=== PATIENT | male | born 1935 | race Caucasian/White ===

== ENCOUNTER 2018-11-23 15:21 | Inpatient (IN) | payer MEDICARE ==
[~2018-11-23] VITALS: Ht 182.9 cm; Wt 109.1 kg
[2018-11-23] MEDS ORDERED: ELIQUIS2.5 MG PO (16:12)
[2018-11-23] MEDS ORDERED: GABAPENTIN100 MG PO (16:13)
[2018-11-23] MEDS ORDERED: LIPITOR20 MG PO (16:16)
[2018-11-23] MEDS ORDERED: BAYER CHEWABLE81 MG (17:10)
[2018-11-23] MEDS ORDERED: GABAPENTIN100 MG (17:10)
[2018-11-23] MEDS ORDERED: FLOMAX0.4 MG PO (17:11)
[2018-11-23] MEDS ORDERED: LOPRESSOR25 MG PO (17:11)
[2018-11-23 19:02] LABS: BASOPHILS 0.1 % (0-2); EOSINOPHILS 0 % (0-7); HEMOGLOBIN 15.1 g/dL (13.5-17.5); IMMATURE GRANULOCYTES 0.3 % (0-5); LYMPHOCYTES 8.1 % (15-50); MCH 31.3 pg (26.0-34.0); MCHC 34.3 g/dL (31.0-37.0); MCV 91.3 fL (80.0-100.0); MEAN PLATELET VOLUME 10.9 fL (7.4-10.4); MONOCYTES 7.6 % (2-11); NEUTROPHILS 83.9 % (40-80); PLATELET COUNT 149 10x3/uL (130-400); RBC 4.82 10x6/uL (4.20-6.10); RDW 14.2 % (11.5-14.5); WBC 16.5 10x3/uL (4.8-10.8)
[2018-11-23 19:15] LABS: APPEARANCE HAZY (CLEAR); BILIRUBIN NEGATIVE (NEGATIVE); COLOR YELLOW (YELLOW); GLUCOSE NEGATIVE (NEGATIVE); KETONE NEGATIVE (NEGATIVE); NITRITE POSITIVE (NEGATIVE); PROTEIN NEGATIVE (NEGATIVE); SPECIFIC GRAVITY 1.005 (1.005-1.020); UROBILINOGEN NORMAL (NORMAL)
[2018-11-23 19:17] LABS: BACTERIA MANY /hpf (NONE SEEN); RED CELLS - URINE OCC /hpf (0-5); WHITE CELLS - URINE 0-5 /hpf (0-5)
[2018-11-23 19:23] VITALS: BP 129/45
[2018-11-23 19:24] LABS: ALBUMIN 3.6 g/dL (3.4-5.0); ALKALINE PHOSPHATASE 55 U/L (46-116); ALT (SGPT) 73 U/L (10-68); BILIRUBIN - TOTAL 1.65 mg/dL (0.2-1.3); CALC OSMOLALITY 277 mosm/kg (275-300); CALCIUM 9.3 mg/dL (8.5-10.1); CARBON DIOXIDE 27.1 mmol/L (21.0-32.0); CHLORIDE - SERUM 101 mmol/L (98-107); GLUCOSE 153 mg/dL (74-106); PROTEIN - SERUM 7.7 g/dL (6.4-8.2); SODIUM 137 mmol/L (136-145); UREA NITROGEN 15 mg/dL (7-18); eGFR NON AFRICAN AMERICAN 76 mL/min (90-120)
--- NOTE | 2018-11-23 22:01 | NUR ---
PT ARRIVED TO THE FLOOR. ALERT AND ORIENTED. NO SIGNS OF DISTRESS. BREATHING EVEN AND UNLABORED. WILL CONTINUE PLAN OF CARE. CALL LIGHT IN REACH. BED LOWERED AND LOCKED. BED RAILS UP X3. FALL PROCAUTIONS IN PLACE.
[2018-11-24 01:33] VITALS: BP 110/53
[2018-11-24 04:25] VITALS: BMI 32.6
[2018-11-24 04:48] VITALS: BP 110/50
[2018-11-24 05:16] LABS: BASOPHILS 0.1 % (0-2); EOSINOPHILS 0.1 % (0-7); HEMATOCRIT 40.7 % (42.0-54.0); HEMOGLOBIN 13.6 g/dL (13.5-17.5); IMMATURE GRANULOCYTES 0.3 % (0-5); LYMPHOCYTES 10.1 % (15-50); MCH 30.8 pg (26.0-34.0); MCHC 33.4 g/dL (31.0-37.0); MCV 92.1 fL (80.0-100.0); MEAN PLATELET VOLUME 10.5 fL (7.4-10.4); MONOCYTES 8.2 % (2-11); NEUTROPHILS 81.2 % (40-80); PLATELET COUNT 129 10x3/uL (130-400); RBC 4.42 10x6/uL (4.20-6.10); RDW 14.7 % (11.5-14.5); WBC 14.5 10x3/uL (4.8-10.8)
[2018-11-24 05:43] LABS: ANION GAP 12.7 mmol/L (8-16); CALCIUM 8.7 mg/dL (8.5-10.1); CARBON DIOXIDE 27.2 mmol/L (21.0-32.0); CREATININE - SERUM 1.1 mg/dL (0.6-1.3); POTASSIUM - SERUM 3.9 mmol/L (3.5-5.1)
[2018-11-24 08:45] VITALS: BP 108/43
--- NOTE | 2018-11-24 10:12 | NUR ---
PATIENT RESTING COMFORTABLY. NO COMPLAINTS. SCD'S PLACED ON PATIENT, MACHINE TURNED ON AND FUNCTIONING. FAMILY AT BEDSIDE. ALL NEEDS MET AT THIS TIME.
[2018-11-24 12:40] VITALS: BP 118/56
[2018-11-24 16:45] VITALS: BP 115/49
--- NOTE | 2018-11-24 17:02 | NUR ---
PATIENT RESTING IN BED WATCHING TV. C/O SINUS PRESSURE, DRAINAGE AND WATERY EYES. EYES HAVE MILD REDNESS. NASAL DISCHARGE PRESENT.
--- NOTE | 2018-11-24 18:40 | NUR ---
I have reviewed this patient and I concur with the Shift Assessment completed by the Licensed Practical Nurse today this shift.
--- NOTE | 2018-11-24 19:45 | NUR ---
PT RESTING IN BED. ALERT AND ORIENTED. NO SINGS OF DISTRESS. BREATHING EVEN AND UNLABORED. IV SITE LT AC DRESSING CLEAN DRY AND INTACT. NO SIGNS OF INFECTION. SKIN CLEAN DRY AND INTACT. BOWEL SOUNDS ACTIVE. REDDNESS INNER THIGHS AND SCTROTUM. NO LOWER LEG SWELLING PRESENT. SCDS ON. BED LOWERED AND LOCKED. BED RAILS UP X3. KARSON ALARM ON. YELLOW GOWN AND SOCKS ON. WILL CONTINUE PLAN OF CARE. CALL LIGHT IN REACH.
[2018-11-24 21:47] VITALS: BP 109/48
[2018-11-25 01:16] VITALS: BP 124/54
--- NOTE | 2018-11-25 03:33 | NUR ---
I have reviewed this patient and I concur with the Shift Assessment completed by the Licensed Practical Nurse today this shift.
[2018-11-25 04:37] VITALS: BP 133/52
[2018-11-25 04:49] LABS: BASOPHILS 0.1 % (0-2); EOSINOPHILS 0.4 % (0-7); HEMATOCRIT 37.3 % (42.0-54.0); HEMOGLOBIN 12.5 g/dL (13.5-17.5); IMMATURE GRANULOCYTES 0.3 % (0-5); LYMPHOCYTES 9.1 % (15-50); MCH 30.4 pg (26.0-34.0); MCHC 33.5 g/dL (31.0-37.0); MCV 90.8 fL (80.0-100.0); MEAN PLATELET VOLUME 10.4 fL (7.4-10.4); MONOCYTES 6.7 % (2-11); NEUTROPHILS 83.4 % (40-80); PLATELET COUNT 118 10x3/uL (130-400); RBC 4.11 10x6/uL (4.20-6.10); RDW 14.5 % (11.5-14.5)
[2018-11-25 05:00] LABS: WBC 7.7 10x3/uL (4.8-10.8)
[2018-11-25 05:06] LABS: CALC OSMOLALITY 276 mosm/kg (275-300); CARBON DIOXIDE 24.3 mmol/L (21.0-32.0); CHLORIDE - SERUM 103 mmol/L (98-107); GLUCOSE 146 mg/dL (74-106); POTASSIUM - SERUM 3.9 mmol/L (3.5-5.1); SODIUM 136 mmol/L (136-145); UREA NITROGEN 19 mg/dL (7-18)
[2018-11-25 05:11] LABS: CREATININE - SERUM 0.8 mg/dL (0.6-1.3); eGFR NON AFRICAN AMERICAN > 90 mL/min (90-120)
--- NOTE | 2018-11-25 07:22 | NUR ---
PATIENT WAS STARTED ON A TRADITIONAL GENT DOSING. A LEVELS WAS DRAWN AT 11/24 @2200 IT WAS 2.7. IT WAS ABOUT AN HOUR LATE TO BE A PEAK. 8 HOURS AFTER THE DOSE THE LEVEL WAS 0.5 WILL CONTINUE WITH 80 MG Q 8H, AND RECHECK LEVELS IN A FEW DAYS
--- NOTE | 2018-11-25 08:00 | NUR ---
PATIENT LAYING IN BED. REPORTS FEELING A LITTLE BETTER THAN YESTERDAY. C/O DRY MOUTH THOUGH DRINKING WATER. ROBERT ROSS, SPEAKING TO PATIENT I LEFT.
--- NOTE | 2018-11-25 10:30 | NUR ---
ASSISTED PATIENT TO BEDSIDE COMMODE FOR BM. EGG CRATE PACED ON MATRESS AND NEW LINENS. ASSISTED PATIENT BACK TO BED. KARSON ALARM TURNED ON, CALL LIGHT IN REACH. ALL NEEDS MET AT THIS TIME.
[2018-11-25 10:39] VITALS: BP 137/66
--- NOTE | 2018-11-25 12:22 | MORECARE ---
CASE MANAGEMENT DISCHARGE SUMMARY PATIENT: ABDI RICHARDSON UNIT: [id number] ADM DATE: 11/23/18 AGE: 83 : 37 SEX: M ROOM/BED: D.2211 AUTHOR: CORTES URBANO PHYSICIAN: REFERRING PHYSICIAN: ELIZA RED MD DATE OF SERVICE: 11/25/18 Discharge Plan Patient Name: ABDI RICHARDSON Facility: [facility]:[place] : 1935 Planned Disposition: Inpatient Rehab Anticipated Discharge Date: Discharge Date: Expected LOS: Initial Reviewer: [email or web address] Initial Review Date: 11/23/2018 Generated: 11/25/18 1:21 pm Patient Name: ABDI RICHARDSON Page 53752 at 1222 All edits/amendments must be made on the electronic document DICTATION DATE: 11/25/18 1221 SOCCER COACH: TK 11/25/18 1221 RPT#: [id number] DC DATE: STATUS: ADM IN [facility] [address] [place] [address] END OF REPORT
--- NOTE | 2018-11-25 12:31 | MORECARE ---
CASE MANAGEMENT DISCHARGE SUMMARY PATIENT: ABDI RICHARDSON UNIT: [id number] ADM DATE: 11/23/18 AGE: 83 : 37 SEX: M ROOM/BED: D.2211 AUTHOR: YOLIEDOC PHYSICIAN: REFERRING PHYSICIAN: ELIZA RED MD DATE OF SERVICE: 11/25/18 Discharge Plan Patient Name: ABDI RICHARDSON Facility: [facility]:[place] : 1935 Planned Disposition: Inpatient Rehab Anticipated Discharge Date: Discharge Date: Expected LOS: Initial Reviewer: [email or web address] Initial Review Date: 11/23/2018 Generated: 11/25/18 1:30 pm Comments DCP- Discharge Planning Updated by [email or web address]: Patricia Davis on 11/25/18 11:[address] Patient Name: ABDI RICHARDSON Admission Status: ER Accout number: [id number] Admission Date: 11-23-2018 : 1935 Admission Diagnosis: Attending: ELIZA RED Current LOS: 2 Anticipated DC Date: Planned Disposition: Inpatient Rehab Primary Insurance: [employer] CHOICE PPO MCR ADVANT Discharge Planning Comments: CM met with patient to complete initial dc planning assessment. CM educated patient on the CM role and verbal consent given by patient to complete assessment. Patient lives at home where he is independent with his care. He stated that either is son or daughter in law will drive him home. At discharge patient would like to go to inpatient rehab at [facility] on [facility] to get stronger & feels this is a safe discharge. He is not opposed to home health when he is discharged. CM will contact [facility] ([place]) Patient denied known discharge needs at this time. At home the patient has a walker, wheelchair, cane, BSC, and shower chair. CM will continue to follow and will assist as needed with dc plans/needs. Skin Lifter Bacon: Patricia Davis DCPIA - Discharge Planning Initial Assessment Updated by [email or web address]: Patricia Davis on 11/25/18 12:22 pm * Is the patient Alert and Oriented? Yes * How many steps to enter\exit or inside your home? basement * PCP JYOTI/ Piotr * Pharmacy [facility] * Preadmission Environment Home with Family * ADLs Independent * Equipment Bedside Commode Cane Shower Chair Walker Wheelchair * List name and contact numbers for known caregivers / representatives who currently or will assist patient after discharge: Lenin Richardson (son) [phone] * Verbal permission to speak to the caregivers and representatives has been obtained from the patient. N/A * Community resources currently utilized None * Additional services required to return to the preadmission environment? Yes * Can the patient safely return to the preadmission environment? Yes * Has this patient been hospitalized within the prior 30 days at any hospital? No External Providers External Provider: [facility] Next Contact Date: Service Request Date: Service Type: Resolution: Reviewer: Comments: Last DP export: 11/25/18 11:21 a Patient Name: ABDI RICHARDSON Page 22015 at 1231 All edits/amendments must be made on the electronic document DICTATION DATE: 11/25/18 123 PEDAL ASSEMBLER: TK 11/25/18 1230 RPT#: [id number] DC DATE: STATUS: ADM IN [facility] [address] [place] [address] END OF REPORT
[2018-11-25 13:03] VITALS: BP 117/56
[2018-11-25 17:59] VITALS: BP 134/60
[2018-11-25 20:20] VITALS: BP 137/59
[2018-11-26 00:31] VITALS: BP 117/63
[2018-11-26 04:17] VITALS: BP 124/64
[2018-11-26 04:59] LABS: BASOPHILS 0.4 % (0-2); EOSINOPHILS 0.7 % (0-7); HEMATOCRIT 37.1 % (42.0-54.0); HEMOGLOBIN 12.5 g/dL (13.5-17.5); IMMATURE GRANULOCYTES 0.2 % (0-5); LYMPHOCYTES 19.6 % (15-50); MCH 30.5 pg (26.0-34.0); MCHC 33.7 g/dL (31.0-37.0); MCV 90.5 fL (80.0-100.0); MEAN PLATELET VOLUME 10.3 fL (7.4-10.4); MONOCYTES 8.8 % (2-11); NEUTROPHILS 70.3 % (40-80); PLATELET COUNT 135 10x3/uL (130-400); RDW 14.4 % (11.5-14.5)
[2018-11-26 05:03] LABS: WBC 5.6 10x3/uL (4.8-10.8)
[2018-11-26 05:37] LABS: CALC OSMOLALITY 272 mosm/kg (275-300); CALCIUM 8.2 mg/dL (8.5-10.1); CARBON DIOXIDE 25.7 mmol/L (21.0-32.0); CHLORIDE - SERUM 102 mmol/L (98-107); CREATININE - SERUM 0.7 mg/dL (0.6-1.3); GLUCOSE 163 mg/dL (74-106); POTASSIUM - SERUM 3.6 mmol/L (3.5-5.1); SODIUM 135 mmol/L (136-145); eGFR NON AFRICAN AMERICAN > 90 mL/min (90-120)
[2018-11-26 05:39] LABS: UREA NITROGEN 10 mg/dL (7-18)
--- NOTE | 2018-11-26 08:15 | NUR ---
PATIENT IN BED WITH IV INTACT. NO COMPLAINTS OR SIGNS OF DISTRESS. CALL LIGHT WITHIN REACH.
[2018-11-26 09:38] VITALS: BP 133/60
--- NOTE | 2018-11-26 13:36 | MORECARE ---
CASE MANAGEMENT DISCHARGE SUMMARY PATIENT: ABDI RICHARDSON UNIT: [id number] ADM DATE: 11/23/18 AGE: 83 : 37 SEX: M ROOM/BED: D.2211 AUTHOR: YOLIEDOC PHYSICIAN: REFERRING PHYSICIAN: ELIZA RED MD DATE OF SERVICE: 11/26/18 Discharge Plan Patient Name: ABDI RICHARDSON Facility: [facility]:[place] : 1935 Planned Disposition: Inpatient Rehab Anticipated Discharge Date: Discharge Date: Expected LOS: Initial Reviewer: [email or web address] Initial Review Date: 11/23/2018 Generated: 11/26/18 2:35 pm Comments DCP- Discharge Planning Updated by [email or web address]: Patricia Davis on 11/25/18 11:[address] Patient Name: ABDI RICHARDSON Admission Status: ER Accout number: [id number] Admission Date: 11-23-2018 : 1935 Admission Diagnosis: Attending: ELIZA RED Current LOS: 2 Anticipated DC Date: Planned Disposition: Inpatient Rehab Primary Insurance: [employer] CHOICE PPO MCR ADVANT Discharge Planning Comments: CM met with patient to complete initial dc planning assessment. CM educated patient on the CM role and verbal consent given by patient to complete assessment. Patient lives at home where he is independent with his care. He stated that either is son or daughter in law will drive him home. At discharge patient would like to go to inpatient rehab at [facility] on [facility] to get stronger & feels this is a safe discharge. He is not opposed to home health when he is discharged. CM will contact [facility] ([place]) Patient denied known discharge needs at this time. At home the patient has a walker, wheelchair, cane, BSC, and shower chair. CM will continue to follow and will assist as needed with dc plans/needs. Fulfillment Associate: Patricia Davis DCPIA - Discharge Planning Initial Assessment Updated by [email or web address]: Patricia Davis on 11/25/18 12:22 pm * Is the patient Alert and Oriented? Yes * How many steps to enter\exit or inside your home? basement * PCP JYOTI/ Piotr * Pharmacy [facility] * Preadmission Environment Home with Family * ADLs Independent * Equipment Bedside Commode Cane Shower Chair Walker Wheelchair * List name and contact numbers for known caregivers / representatives who currently or will assist patient after discharge: Lenin Richardson (son) [phone] * Verbal permission to speak to the caregivers and representatives has been obtained from the patient. N/A * Community resources currently utilized None * Additional services required to return to the preadmission environment? Yes * Can the patient safely return to the preadmission environment? Yes * Has this patient been hospitalized within the prior 30 days at any hospital? No Last DP export: 11/25/18 11:30 a Patient Name: ABDI RICHARDSON Page [id number] at 1336 All edits/amendments must be made on the electronic document DICTATION DATE: 11/26/185 SPRAYER INSECTICIDE: TK 11/26/185 RPT#: [id number] DC DATE: STATUS: ADM IN [facility] [address] [place] [address] END OF REPORT
[2018-11-26 13:55] VITALS: BP 114/53
--- NOTE | 2018-11-26 13:58 | MORECARE ---
CASE MANAGEMENT DISCHARGE SUMMARY PATIENT: ABDI RICHARDSON UNIT: [id number] ADM DATE: 11/23/18 AGE: 83 : 37 SEX: M ROOM/BED: D.2211 AUTHOR: YOLIEDOC PHYSICIAN: REFERRING PHYSICIAN: ELIZA RED MD DATE OF SERVICE: 11/26/18 Discharge Plan Patient Name: ABDI RICHARDSON Facility: [facility]:[place] : 1935 Planned Disposition: Inpatient Rehab Anticipated Discharge Date: Discharge Date: Expected LOS: Initial Reviewer: [email or web address] Initial Review Date: 11/23/2018 Generated: 11/26/18 2:58 pm Comments DCP- Discharge Planning Updated by [email or web address]: Patricia Davis on 11/25/18 11:[address] Patient Name: ABDI RICHARDSON Admission Status: ER Accout number: [id number] Admission Date: 11-23-2018 : 1935 Admission Diagnosis: Attending: ELIZA RED Current LOS: 2 Anticipated DC Date: Planned Disposition: Inpatient Rehab Primary Insurance: [employer] CHOICE PPO MCR ADVANT Discharge Planning Comments: CM met with patient to complete initial dc planning assessment. CM educated patient on the CM role and verbal consent given by patient to complete assessment. Patient lives at home where he is independent with his care. He stated that either is son or daughter in law will drive him home. At discharge patient would like to go to inpatient rehab at [facility] on [address] to get stronger & feels this is a safe discharge. He is not opposed to home health when he is discharged. CM will contact [facility] ([place]) Patient denied known discharge needs at this time. At home the patient has a walker, wheelchair, cane, BSC, and shower chair. CM will continue to follow and will assist as needed with dc plans/needs. Record Keeper: Patricia Davis DCPIA - Discharge Planning Initial Assessment Updated by [email or web address]: Patricia Davis on 11/25/18 12:22 pm * Is the patient Alert and Oriented? Yes * How many steps to enter\exit or inside your home? basement * PCP JYOTI/ Piotr * Pharmacy [facility] * Preadmission Environment Home with Family * ADLs Independent * Equipment Bedside Commode Cane Shower Chair Walker Wheelchair * List name and contact numbers for known caregivers / representatives who currently or will assist patient after discharge: Lenin Richardson (son) [phone] * Verbal permission to speak to the caregivers and representatives has been obtained from the patient. N/A * Community resources currently utilized None * Additional services required to return to the preadmission environment? Yes * Can the patient safely return to the preadmission environment? Yes * Has this patient been hospitalized within the prior 30 days at any hospital? No External Providers External Provider: [facility] Next Contact Date: Service Request Date: Service Type: Resolution: Reviewer: Comments: Last DP export: 11/26/18 12:36 p Patient Name: ABDI RICHARDSON Page [phone] at 1358 All edits/amendments must be made on the electronic document DICTATION DATE: 11/26/18 135 CONSTRUCTION COST ESTIMATOR: TK 11/26/18 1358 RPT#: [id number] DC DATE: STATUS: ADM IN [facility] [address] [place] [address] END OF REPORT
--- NOTE | 2018-11-26 14:09 | MORECARE ---
CASE MANAGEMENT DISCHARGE SUMMARY PATIENT: ABDI RICHARDSON UNIT: [id number] ADM DATE: 11/23/18 AGE: 83 : 37 SEX: M ROOM/BED: D.2211 AUTHOR: YOLIEDOC PHYSICIAN: REFERRING PHYSICIAN: ELIZA RED MD DATE OF SERVICE: 11/26/18 Discharge Plan Patient Name: ABDI RICHARDSON Facility: [facility]:[place] : 1935 Planned Disposition: Inpatient Rehab Anticipated Discharge Date: Discharge Date: Expected LOS: Initial Reviewer: [email or web address] Initial Review Date: 11/23/2018 Generated: 11/26/18 3:08 pm Comments DCP- Discharge Planning Updated by [email or web address]: Patricia Davis on 11/26/18 12:[address] PATIENT WOULD LIKE TO GO TO [facility], I CALLED AND SPOKE WITH [facility] AND SENT CLINICALS OVER THERE DCP- Discharge Planning Updated by [email or web address]: Patricia Davis on 11/25/18 11:[address] Patient Name: ABDI RICHARDSON Admission Status: ER Accout number: [id number] Admission Date: 11-23-2018 : 1935 Admission Diagnosis: Attending: ELIZA RED Current LOS: 2 Anticipated DC Date: Planned Disposition: Inpatient Rehab Primary Insurance: HU[employer] CHOICE PPO MCR ADVANT Discharge Planning Comments: CM met with patient to complete initial dc planning assessment. CM educated patient on the CM role and verbal consent given by patient to complete assessment. Patient lives at home where he is independent with his care. He stated that either is son or daughter in law will drive him home. At discharge patient would like to go to inpatient rehab at [facility] on [facility] to get stronger & feels this is a safe discharge. He is not opposed to home health when he is discharged. CM will contact [facility] ([place]) Patient denied known discharge needs at this time. At home the patient has a walker, wheelchair, cane, BSC, and shower chair. CM will continue to follow and will assist as needed with dc plans/needs. Oracle Identity Management Consultant: Patricia Davis DCPIA - Discharge Planning Initial Assessment Updated by [email or web address]: Patricia Davis on 11/25/18 12:22 pm * Is the patient Alert and Oriented? Yes * How many steps to enter\exit or inside your home? basement * PCP JYOTI/ Piotr * Pharmacy [facility] * Preadmission Environment Home with Family * ADLs Independent * Equipment Bedside Commode Cane Shower Chair Walker Wheelchair * List name and contact numbers for known caregivers / representatives who currently or will assist patient after discharge: Lenin Richardson (son) [phone] * Verbal permission to speak to the caregivers and representatives has been obtained from the patient. N/A * Community resources currently utilized None * Additional services required to return to the preadmission environment? Yes * Can the patient safely return to the preadmission environment? Yes * Has this patient been hospitalized within the prior 30 days at any hospital? No Last DP export: 11/26/18 12:58 p Patient Name: ABDI RICHARDSON Page 41293 at 1409 All edits/amendments must be made on the electronic document DICTATION DATE: 11/26/181407 ACCOUNTING METHODS ANALYST: DM 11/26/181407 RPT#: [id number] DC DATE: STATUS: ADM IN [facility] [address] [place] [address] END OF REPORT
--- NOTE | 2018-11-26 14:38 | NUR ---
OT NOTE: PT COMPLETED BED MOB WITH MIN A. PT COMPLETED TRANSFERS WITH MOD A. PT COMPLETED GROOMING TASKS WITH MIN A. THANK YOU, SKY CUEVA
--- NOTE | 2018-11-26 17:54 | NUR ---
PATIENT SITTING UP EATING AT THIS TIME. NO COMPLAINTS OR SIGNS OF DISTRESS. FAMILY AT BEDSIDE. CALL LIGHT WITHIN REACH.
[2018-11-26 18:07] VITALS: BP 118/58
[2018-11-26 18:34] VITALS: Ht 182.9 cm; Wt 109.1 kg
--- NOTE | 2018-11-26 19:05 | NUR ---
PT ALERT AND ORIENTED WHEN ENTERING THE ROOM. PT REQUESTING AC TO BE TURNED DOWN. PT IN YELLOW GOWN. SCD'S ON. LUNGS AUSCULTATED AND CLEAR TO AUSCULTATION IN UPPER AND LOWER LOBES. LEFT AC IV THAT IS SALINE LOCKED. PT DENIES ANY CARE AT THIS TIME. CPOC.
[2018-11-26 20:53] VITALS: BP 139/56
--- NOTE | 2018-11-26 21:27 | NUR ---
ADMINSITERED HS MEDICATIONS. PT STARTED COUGHING WHILE IN ROOM AND AUSCAULTATED LUNG SOUNDS AGAIN AND PRESENTED WITH INSPIRATORY WHEEZES. RETREIVED AN INCENTIVE SPIROMETERE AND EDUCATED PT ON USE. PT PROVIDED RETURN DEMONSTRATION. DENIES ANY OTHER NEEDS AT THIS TIME. CPOC.
[2018-11-27 01:19] VITALS: BP 126/62
--- NOTE | 2018-11-27 04:42 | NUR ---
I have reviewed this patient and I concur with the Shift Assessment completed by the Licensed Practical Nurse today this shift.
[2018-11-27 05:27] VITALS: BP 124/61
[2018-11-27 06:39] LABS: BASOPHILS 0.2 % (0-2); EOSINOPHILS 2.4 % (0-7); HEMATOCRIT 36.8 % (42.0-54.0); HEMOGLOBIN 12.3 g/dL (13.5-17.5); IMMATURE GRANULOCYTES 0.3 % (0-5); LYMPHOCYTES 22.3 % (15-50); MCH 30.4 pg (26.0-34.0); MCHC 33.4 g/dL (31.0-37.0); MCV 90.9 fL (80.0-100.0); MEAN PLATELET VOLUME 10.3 fL (7.4-10.4); MONOCYTES 13.9 % (2-11); NEUTROPHILS 60.9 % (40-80); PLATELET COUNT 140 10x3/uL (130-400); RBC 4.05 10x6/uL (4.20-6.10); RDW 14.5 % (11.5-14.5); WBC 6.2 10x3/uL (4.8-10.8)
[2018-11-27 07:16] LABS: CALC OSMOLALITY 274 mosm/kg (275-300); CALCIUM 8.3 mg/dL (8.5-10.1); CARBON DIOXIDE 28.4 mmol/L (21.0-32.0); CHLORIDE - SERUM 101 mmol/L (98-107); CREATININE - SERUM 0.7 mg/dL (0.6-1.3); GLUCOSE 123 mg/dL (74-106); POTASSIUM - SERUM 3.7 mmol/L (3.5-5.1); SODIUM 137 mmol/L (136-145); eGFR NON AFRICAN AMERICAN > 90 mL/min (90-120)
[2018-11-27 07:17] LABS: UREA NITROGEN 13 mg/dL (7-18)
[2018-11-27 09:19] VITALS: BP 122/63
[2018-11-27 14:25] VITALS: BP 126/63
[2018-11-27 18:05] VITALS: BP 122/55
--- NOTE | 2018-11-27 18:45 | NUR ---
PATIENT SITTING UP IN BED WITH NO COMPLAINTS OR SIGNS OF DISTRESS. STATED BREATHING BETTER NOW THAT LASIX HAS WORKED. URINE CLEARER AND PATIENT LESS WHEEZY. IV INTACT. NO PROBLEMS AT THIS TIME. CALL LIGHT WITHIN REACH.
--- NOTE | 2018-11-27 19:24 | NUR ---
PATIENT IN BED WITH IV INTACT. NO COMPLAINTS OR SIGNS OF DISTRESS. CALL LIGHT WITHIN REACH.
[2018-11-27 20:00] VITALS: BP 124/59
[2018-11-28] VITALS: BP 123/61
[2018-11-28 04:00] VITALS: BP 128/47
--- NOTE | 2018-11-28 04:22 | NUR ---
I have reviewed this patient and I concur with the Shift Assessment completed by the Licensed Practical Nurse today this shift.
--- NOTE | 2018-11-28 07:44 | NUR ---
PATIENT IN BED WITH EYES OPEN. DENIES ANY NEEDS AT THIS TIME. IV INTACT. CALL LIGHT WITHIN REACH. NO COMPLAINTS OR SIGNS OF DISTRESS.
[2018-11-28 07:48] LABS: BASOPHILS 0.3 % (0-2); EOSINOPHILS 2.7 % (0-7); HEMATOCRIT 38.4 % (42.0-54.0); HEMOGLOBIN 13.1 g/dL (13.5-17.5); IMMATURE GRANULOCYTES 0.3 % (0-5); LYMPHOCYTES 19.9 % (15-50); MCH 30.7 pg (26.0-34.0); MCHC 34.1 g/dL (31.0-37.0); MCV 89.9 fL (80.0-100.0); MEAN PLATELET VOLUME 9.8 fL (7.4-10.4); MONOCYTES 11.5 % (2-11); NEUTROPHILS 65.3 % (40-80); PLATELET COUNT 160 10x3/uL (130-400); RBC 4.27 10x6/uL (4.20-6.10); RDW 14.2 % (11.5-14.5)
[2018-11-28 07:55] LABS: CALC OSMOLALITY 274 mosm/kg (275-300); CALCIUM 8.4 mg/dL (8.5-10.1); CARBON DIOXIDE 28.4 mmol/L (21.0-32.0); CHLORIDE - SERUM 101 mmol/L (98-107); CREATININE - SERUM 0.7 mg/dL (0.6-1.3); GLUCOSE 128 mg/dL (74-106); POTASSIUM - SERUM 3.5 mmol/L (3.5-5.1); SODIUM 136 mmol/L (136-145); UREA NITROGEN 14 mg/dL (7-18); eGFR NON AFRICAN AMERICAN > 90 mL/min (90-120)
[2018-11-28 10:10] VITALS: BP 116/59
--- NOTE | 2018-11-28 13:28 | NUR ---
OT NOTE: PT REPORTED FEELING BETTER TODAY, ABLE TO PERFORM BED MOB AND SITTING ON EDGE OF BED WITH MIN ASSIST. ABLE TO PERFORM SIMPLE GROOMING FROM BEDSIDE. REPORTED THAT HE WAS NOT EATING MUCH BECAUSE HE DIDNT WANT TO HAVE TO USE BS COMMODE. EXPLAINED TO PT THAT WE CAN KEEP WALKER IN HIS ROOM AND AMBULATE TO BATHROOM VS BS COMMODE. TOLD PT THAT WE COULD ATTEMPT SHOWER TODAY BUT HE STATED THAT HE ALREADY HAD A BATH THIS AM. WILL ATTEMPT TOMORROW TOLERATED. SHERLYN VALENCIA, OTR/L
--- NOTE | 2018-11-28 14:00 | NUR ---
POWER PLANT SUPERVISOR IN TO REDRESS IV. STATED THAT IV DOESNT WORK ANY MORE AT THIS TIME. IV RESTARTED IN LEFT ARM X 2 STICKS. PATIENT TOLERATED WITH SMALL AMOUNT OF PAIN. LEFT AC IV REMOVED WITH CATH TIP INTACT. PATIENT HAS NO COMPLAINTS. IV INTACT. CALL LIGHT WITHIN REACH.
[2018-11-28 14:23] VITALS: BP 118/62
[2018-11-28 16:00] VITALS: BP 122/59
--- NOTE | 2018-11-28 18:55 | NUR ---
PATIENT IN BED WITH NO COMPLAINTS OR SIGNS OF DISTRESS. IV INTACT. CALL LIGHT WITHIN REACH.
[2018-11-28 20:00] VITALS: BP 124/61
[2018-11-29] VITALS: BP 130/56
[2018-11-29 03:00] VITALS: BP 124/55
[2018-11-29 04:54] LABS: BASOPHILS 0.3 % (0-2); EOSINOPHILS 3.5 % (0-7); HEMATOCRIT 39.1 % (42.0-54.0); HEMOGLOBIN 13.4 g/dL (13.5-17.5); IMMATURE GRANULOCYTES 0.6 % (0-5); LYMPHOCYTES 22.2 % (15-50); MCH 30.9 pg (26.0-34.0); MCHC 34.3 g/dL (31.0-37.0); MCV 90.3 fL (80.0-100.0); MEAN PLATELET VOLUME 9.9 fL (7.4-10.4); NEUTROPHILS 64.4 % (40-80); RBC 4.33 10x6/uL (4.20-6.10); RDW 14.3 % (11.5-14.5); WBC 6.5 10x3/uL (4.8-10.8)
[2018-11-29 04:59] LABS: CALC OSMOLALITY 281 mosm/kg (275-300); CALCIUM 8.2 mg/dL (8.5-10.1); CHLORIDE - SERUM 103 mmol/L (98-107); CREATININE - SERUM 0.6 mg/dL (0.6-1.3); GLUCOSE 131 mg/dL (74-106); POTASSIUM - SERUM 3.7 mmol/L (3.5-5.1); SODIUM 140 mmol/L (136-145); UREA NITROGEN 15 mg/dL (7-18); eGFR NON AFRICAN AMERICAN > 90 mL/min (90-120)
[2018-11-29 05:01] LABS: PLATELET COUNT 195 10x3/uL (130-400)
--- NOTE | 2018-11-29 05:04 | NUR ---
PT IN BED IN LOW FOWLERS POSITION. ALERT AND ORIENTED X4. RESPIRATIONS EVEN AND UNLABORED. VITAL SIGNS STABLE AND AFEBRILE. NO VISUAL CUES OF DISTRESS NOTED. DENIES ANY OTHER NEEDS AT THIS TIME. BED LOW, SIDE RAILS UP X2. CALL LIGHT IN REACH. WILL CONTINUE TO MONITOR.
--- NOTE | 2018-11-29 08:45 | NUR ---
PATIENT IN BED WITH IV INTACT. NO COMPLAINTS WITH CALL LIGHT WITHIN REACH.
[2018-11-29 09:23] VITALS: BP 124/61
--- NOTE | 2018-11-29 12:14 | NUR ---
OT NOTE: PT PERFORMED VERY WELL TODAY. BED MOB WITH SBA; ABLE TO AMB WITHIN ROOM WITH CGA AND USE OF RW; ABLE TO AMB TO BATHROOM WITH CGA AND USE OF RW. PT AMB IN HALLWAY TO IMPROVE FUNCTIONAL ENDURANCE..NO SOB NOTED. PT PERFORMED BATHING OF UE/LE WITH SET UP; REQUIRED ASSIST WITH PERINEAL AREA AND BACK. SET UP WITH GOWN. SET UP WITH SOCKS WHILE SITTING UP IN CHAIR. SIMPLE GROOMING TASKS WITH SET UP SHERLYN VALENCIA OTR/L
[2018-11-29] MEDS ORDERED: Nicoderm [PBKC] TRANSDERM (12:40)
[2018-11-29] MEDS ORDERED: MIRALAX17 GM PO (12:40)
[2018-11-29] MEDS ORDERED: LEVAQUIN750 MG PO (12:40)
[2018-11-29] MEDS ORDERED: FLORAJEN3 CAPS460 MG PO (12:40)
[2018-11-29 13:49] VITALS: BP 115/60
--- NOTE | 2018-11-29 13:52 | MORECARE ---
CASE MANAGEMENT DISCHARGE SUMMARY PATIENT: ABDI RICHARDSON UNIT: [id number] ADM DATE: 11/23/18 AGE: 83 : 37 SEX: M ROOM/BED: D.2211 AUTHOR: YOLIE,DOC PHYSICIAN: REFERRING PHYSICIAN: ELIZA RED MD DATE OF SERVICE: 11/29/18 Discharge Plan Patient Name: ABDI RICHARDSON Facility: [facility]:[place] : 1935 Planned Disposition: Home Anticipated Discharge Date: Discharge Date: Expected LOS: Initial Reviewer: [email or web address] Initial Review Date: 11/23/2018 Generated: 11/29/18 2:51 pm Comments DCP- Discharge Planning Updated by [email or web address]: Tricia Olivo on 11/29/18 12:[address] Patient Name: ABDI RICHARDSON Admission Status: ER Accout number: [id number] Admission Date: 11-23-2018 : 1935 Admission Diagnosis:OTHER DIFFICULTIES WITH MICTURITION Attending: ELIZA RED Current LOS: 6 Anticipated DC Date: Planned Disposition: Home Primary Insurance: HU[employer]NA CHOICE PPO MCR ADVANT Discharge Planning Comments: SPOKE WITH PATIENT AND HIS DIL. HE WANTS TO DC TO HOME TODAY. HAS EQUIPMENT AT HOME, WALKER ETC. STATES HIS INSURANCE IS SETTING HIM UP WITH A NURSE, I'M ASSUMING HH. PATIENT DOESN'T FEEL LIKE HE NEEDS SNF. CM WILL FOLLOW AND ASSIST NEEDED WITH DC PLANNING/NEEDS. Lime Mixer Tender: Tricia Olivo DCP- Discharge Planning Updated by [email or web address]: Patricia Davis on 11/26/18 12:[address] PATIENT WOULD LIKE TO GO TO [facility], I CALLED AND SPOKE WITH [facility] AND SENT CLINICALS OVER THERE DCP- Discharge Planning Updated by [email or web address]: Patricia Davis on 11/25/18 11:[address] Patient Name: ABDI RICHARDSON Admission Status: ER Accout number: [id number] Admission Date: 11-23-2018 : 1935 Admission Diagnosis: Attending: ELZIA RED Current LOS: 2 Anticipated DC Date: Planned Disposition: Inpatient Rehab Primary Insurance: HU[employer]NA CHOICE PPO MCR ADVANT Discharge Planning Comments: CM met with patient to complete initial dc planning assessment. CM educated patient on the CM role and verbal consent given by patient to complete assessment. Patient lives at home where he is independent with his care. He stated that either is son or daughter in law will drive him home. At discharge patient would like to go to inpatient rehab at [facility] on [address] to get stronger & feels this is a safe discharge. He is not opposed to home health when he is discharged. CM will contact [facility] ([place]) Patient denied known discharge needs at this time. At home the patient has a walker, wheelchair, cane, BSC, and shower chair. CM will continue to follow and will assist as needed with dc plans/needs. Lime Mixer Tender: Patricia Davis DCPIA - Discharge Planning Initial Assessment Updated by [email or web address]: Patricia Davis on 11/25/18 12:22 pm * Is the patient Alert and Oriented? Yes * How many steps to enter\exit or inside your home? basement * PCP JYOTI/ Piotr * Pharmacy [facility] * Preadmission Environment Home with Family * ADLs Independent * Equipment Bedside Commode Cane Shower Chair Walker Wheelchair * List name and contact numbers for known caregivers / representatives who currently or will assist patient after discharge: Lenin Richardson (son) [phone] * Verbal permission to speak to the caregivers and representatives has been obtained from the patient. N/A * Community resources currently utilized None * Additional services required to return to the preadmission environment? Yes * Can the patient safely return to the preadmission environment? Yes * Has this patient been hospitalized within the prior 30 days at any hospital? No Coverage Notice Reviewer: [id number] Gina Olivo Notice Issued Date-Time: 11/29/2018 12:39 Notice Type: IM Discharge Notice Notice Delivered To: Patient Relationship to Patient: Fishing Vessel Mate Name: Delivery Method: HAND - Hand Delivered Dominique Days: Prior Verbal Notification: Recipient Understood Notice: Yes Recipient Signature: Yes Med Rec Note Co-signed by Attending: Coverage Notice Comment: Last DP export: 11/26/18 1:08 p Patient Name: ABDI RICHARDSON Page 38945 at 1352 All edits/amendments must be made on the electronic document DICTATION DATE: 11/29/18 1351 RESPIRATORY MEDICINE PHYSICIAN: TK 11/29/18 1351 RPT#: [id number] DC DATE: STATUS: ADM IN [facility] [address] [place] [address] END OF REPORT
--- NOTE | 2018-11-29 15:00 | NUR ---
PATIENT RECIEVED DISCHARGE INSTRUCTIONS. ALSO SPOKE WITH DAUGHTER IN LAW ABOUT PRESCRIPTIONS AND INSTRUCTIONS. VERBALIZED UNDERSTANDING. NO QUESTIONS AT THIS TIME. IV REMOVED WITH CATH TIP INTACT. CALL LIGHT WITHIN REACH.
--- NOTE | 2018-11-29 15:20 | NUR ---
PATIENT ESCORTED OUT OF BUILDING VIA WC TO PRIVATE VEHICLE WITH PERSONAL BELONGINGS BY FAMILY AND HOSPITAL VOLUNTEER.
--- NOTE | 2018-11-30 12:18 | MORECARE ---
CASE MANAGEMENT DISCHARGE SUMMARY PATIENT: ABDI RICHARDSON UNIT: [id number] ADM DATE: 11/23/18 AGE: 83 : 39 SEX: M ROOM/BED: D.2211 AUTHOR: [email or web address] PHYSICIAN: REFERRING PHYSICIAN: ELIZA ERD MD DATE OF SERVICE: 11/30/18 Discharge Plan Patient Name: ABDI RICHARDSON Facility: [facility]:[place] : 1935 Planned Disposition: Home Anticipated Discharge Date: Discharge Date: 11/29/2018 Expected LOS: 0 Initial Reviewer: [id number] Initial Review Date: 11/23/2018 Generated: 11/30/18 1:17 pm Comments DCP- Discharge Planning Updated by [email or web address]: Tricia Olivo on 11/29/18 12:[address] Patient Name: ABDI RICHARDSON Admission Status: ER Accout number: [id number] Admission Date: 11-23-2018 : 1935 Admission Diagnosis:OTHER DIFFICULTIES WITH MICTURITION Attending: ELIZA RED Current LOS: 6 Anticipated DC Date: Planned Disposition: Home Primary Insurance: [employer] CHO[employer] PPO MCR ADVANT Discharge Planning Comments: SPOKE WITH PATIENT AND HIS DIL. HE WANTS TO DC TO HOME TODAY. HAS EQUIPMENT AT HOME, WALKER ETC. STATES HIS INSURANCE IS SETTING HIM UP WITH A NURSE, I'M ASSUMING HH. PATIENT DOESN'T FEEL LIKE HE NEEDS SNF. CM WILL FOLLOW AND ASSIST NEEDED WITH DC PLANNING/NEEDS. Acid Tank Cleaner: Tricia Olivo DCP- Discharge Planning Updated by [email or web address]: Patricia Davis on 11/26/18 12:[address] PATIENT WOULD LIKE TO GO TO [facility], I CALLED AND SPOKE WITH [facility] AND SENT CLINICALS OVER THERE DCP- Discharge Planning Updated by [email or web address]: Patricia Davis on 11/25/18 11:[address] Patient Name: ABDI RICHARDSON Admission Status: ER Accout number: [id number] Admission Date: 11-23-2018 : 1935 Admission Diagnosis: Attending: ELIZA RED Current LOS: 2 Anticipated DC Date: Planned Disposition: Inpatient Rehab Primary Insurance: [employer] CHOICE PPO MCR ADVANT Discharge Planning Comments: CM met with patient to complete initial dc planning assessment. CM educated patient on the CM role and verbal consent given by patient to complete assessment. Patient lives at home where he is independent with his care. He stated that either is son or daughter in law will drive him home. At discharge patient would like to go to inpatient rehab at [facility] on [address] to get stronger & feels this is a safe discharge. He is not opposed to home health when he is discharged. CM will contact [facility] ([place]) Patient denied known discharge needs at this time. At home the patient has a walker, wheelchair, cane, BSC, and shower chair. CM will continue to follow and will assist as needed with dc plans/needs. Acid Tank Cleaner: Patricia Davis DCPIA - Discharge Planning Initial Assessment Updated by [email or web address]: Patricia Davis on 11/25/18 12:22 pm * Is the patient Alert and Oriented? Yes * How many steps to enter\exit or inside your home? basement * PCP [facility]/ P[facility] * Pharmacy [facility] * Preadmission Environment Home with Family * ADLs Independent * Equipment Bedside Commode Cane Shower Chair Walker Wheelchair * List name and contact numbers for known caregivers / representatives who currently or will assist patient after discharge: Lenin Richardson (son) [phone] * Verbal permission to speak to the caregivers and representatives has been obtained from the patient. N/A * Community resources currently utilized None * Additional services required to return to the preadmission environment? Yes * Can the patient safely return to the preadmission environment? Yes * Has this patient been hospitalized within the prior 30 days at any hospital? No Coverage Notice Reviewer: [email or web address] Gina Olivo Notice Issued Date-Time: 11/29/2018 12:39 Notice Type: IM Discharge Notice Notice Delivered To: Patient Relationship to Patient: Tech Brazer Tester Name: Delivery Method: HAND - Hand Delivered Dominique Days: Prior Verbal Notification: Recipient Understood Notice: Yes Recipient Signature: Yes Med Rec Note Co-signed by Attending: Coverage Notice Comment: Last DP export: 11/29/18 12:52 p Patient Name: ABDI RICHARDSON Page [id number] at 1218 All edits/amendments must be made on the electronic document DICTATION DATE: 11/30/181216 PURCHASING EXPEDITOR: TK 11/30/181216 RPT#: [id number] DC DATE:11/29/18 STATUS: DIS IN [facility] [address] [place] [place] [address] END OF REPORT
== END 2018-11-29 15:22 | disposition home or self-care (01) | DRG 872 ==
LOC: D.ER 15:21 → D.MS 20:54
PROVIDERS: Family Medicine; ADMIT Internal Medicine Nephrology; ATTEND Internal Medicine Nephrology
DX: A41.9 Sepsis, unspecified organism (principal); N39.0 Urinary tract infection, site not specified; I10 Essential (primary) hypertension; I25.10 Atherosclerotic heart disease of native coronary artery without angina pectoris; N40.1 Benign prostatic hyperplasia with lower urinary tract symptoms; G62.9 Polyneuropathy, unspecified